=== PATIENT | female | born 1950 | race Caucasian/White ===

== ENCOUNTER 2017-02-09 06:54 | Day surgery (SDC) | payer MEDICARE ==
[~2017-02-09] VITALS: Ht 162.6 cm; Wt 77.1 kg
[~2017-02-09 06:54] MED LIST: ASPIRIN ADULT L81 M2 PO; BL IBUPROFEN200 MG PO; CALCIUM + D PO; EC-81 ASPIRIN81 MG PO; LIPITOR10 M1 PO; LOSARTAN POT100 MG PO; OMEPRAZOLE20 M2 PO; TYLENOL 500MG TAB PO
[2017-02-09 09:29] VITALS: BP 107/55
== END 2017-02-09 09:21 | disposition home or self-care (01) ==
LOC: ENDO 06:54 → ORM 10:15 → ENDO 10:15 → ORM 10:30
PROVIDERS: ATTEND Internal Medicine Gastroenterology
PROC: 0DB48ZX Excision of Esophagogastric Junction, Via Natural or Artificial Opening Endoscopic, Diagnostic (ICD-10-PCS; principal; 2017-02-09)
PROC: 0DB68ZX Excision of Stomach, Via Natural or Artificial Opening Endoscopic, Diagnostic (ICD-10-PCS; 2017-02-09)
DX: K21.9 Gastro-esophageal reflux disease without esophagitis (principal); K29.50 Unspecified chronic gastritis without bleeding; K57.30 Diverticulosis of large intestine without perforation or abscess without bleeding; K64.8 Other hemorrhoids; I10 Essential (primary) hypertension; K31.7 Polyp of stomach and duodenum; K44.9 Diaphragmatic hernia without obstruction or gangrene; Z86.010 Personal history of colon polyps

== ENCOUNTER 2017-03-06 01:17 | Emergency (ER) | payer MEDICARE ==
[~2017-03-06] VITALS: Ht 162.6 cm; Wt 78.6 kg
[2017-03-06 02:13] LABS: HEMATOCRIT 41.8 % (37.0-47.0); HEMOGLOBIN 14.5 g/dl (12.0-16.0); IMMATURE GRANULOCYTES 0.1 % (0.0-1.0); MEAN CELL VOLUME 85.1 fL CALC (80.0-100.0); MEAN CORPUSCULAR HGB 29.5 pG CALC (26.0-32.0); MEAN CORPUSCULAR HGB CONC 34.7 g/L CALC (32.0-36.0); NEUT# 7.11 thou/uL (2.00-7.15); RED BLOOD COUNT 4.91 mill/uL (4.20-5.60)
[2017-03-06 02:27] LABS: ALBUMIN 4.4 g/dL (3.2-5.0); ALKALINE PHOSPHATASE 109 u/l (38-126); ANION GAP 14 (6-22 (CALC)); BILIRUBIN, TOTAL 0.8 mg/dL (0.0-1.4); BUN 16 mg/dL (8-23); BUN/CREATININE RATIO 27 (12-20 (CALC)); CALCIUM 9.5 mg/dL (8.4-10.2); CARBON DIOXIDE 25 mmol/l (22-30); CHLORIDE 107 mmol/l (95-108); CREATININE 0.6 mg/dL (0.5-1.0); GFR > 60 ML/MIN (>=60 (CALC)); GFR FOR AFR.AMER. > 60 ML/MIN (>=60 (CALC)); GLUCOSE 128 mg/dL (82-115); POTASSIUM 3.8 mmol/l (3.5-5.1); SGOT/AST 39 u/l (9-36); SGPT/ALT 70 u/l (11-66); SODIUM 142 mmol/l (137-146); TOTAL PROTEIN 7.3 g/dL (6.3-8.2)
[2017-03-06 03:02] LABS: URINE BILIRUBIN - DIPSTICK NEGATIVE (NEGATIVE); URINE BLOOD DIPSTICK TRACE-INTACT (NEGATIVE); URINE CLARITY CLEAR; URINE COLOR YELLOW; URINE GLUCOSE - DIPSTICK NEGATIVE (NEGATIVE); URINE KETONE NEGATIVE (NEGATIVE); URINE LEUK ESTERASE NEGATIVE (NEGATIVE); URINE NITRITE - DIPSTICK NEGATIVE (Negative); URINE PH 5.5 (4.5-8.0); URINE PROTEIN - DIPSTICK NEGATIVE (NEG-TRACE); URINE SPECIFIC GRAVITY 1.025; URINE UROBILINOGEN - DIPSTICK 0.2 E.U./dL (0.2)
[2017-03-06] MEDS ORDERED: AMOXICILLIN/PO500 MG PO (03:11)
[2017-03-06 04:00] VITALS: BP 129/60
[2017-03-06] MEDS ORDERED: AUGMENTIN875TAB PO (13:56)
== END 2017-03-06 04:00 | disposition home or self-care (01) ==
LOC: ED 01:17
PROVIDERS: Emergency Medicine
DX: L03.116 Cellulitis of left lower limb (principal); L03.115 Cellulitis of right lower limb; R50.9 Fever, unspecified; I10 Essential (primary) hypertension

== ENCOUNTER 2023-02-19 07:46 | Day surgery (SDC) | payer MEDICARE ==
[~2023-02-19] VITALS: Ht 162.6 cm; Wt 70.8 kg
[~2023-02-19 07:46] MED LIST changes: +AMOXICILLIN/PO500 MG PO; +AUGMENTIN875TAB PO; +METOPROLOL TAR100 MG PO
[2023-02-19 10:09] VITALS: BP 139/81
== END 2023-02-19 10:40 | disposition home or self-care (01) ==
LOC: ENDO 07:46 → ORM 09:10 → ENDO 10:40 → ORM 12:00
PROVIDERS: ATTEND Internal Medicine Gastroenterology
PROC: 0DBN8ZX Excision of Sigmoid Colon, Via Natural or Artificial Opening Endoscopic, Diagnostic (ICD-10-PCS; principal; 2023-02-19)
PROC: 0DB48ZX Excision of Esophagogastric Junction, Via Natural or Artificial Opening Endoscopic, Diagnostic (ICD-10-PCS; 2023-02-19)
PROC: 0DB78ZX Excision of Stomach, Pylorus, Via Natural or Artificial Opening Endoscopic, Diagnostic (ICD-10-PCS; 2023-02-19)
PROC: 0DB68ZX Excision of Stomach, Via Natural or Artificial Opening Endoscopic, Diagnostic (ICD-10-PCS; 2023-02-19)
DX: Z12.11 Encounter for screening for malignant neoplasm of colon (principal); D12.5 Benign neoplasm of sigmoid colon; K57.30 Diverticulosis of large intestine without perforation or abscess without bleeding; K64.8 Other hemorrhoids; K44.9 Diaphragmatic hernia without obstruction or gangrene; K29.70 Gastritis, unspecified, without bleeding; K25.9 Gastric ulcer, unspecified as acute or chronic, without hemorrhage or perforation; K31.7 Polyp of stomach and duodenum; Z86.010 Personal history of colon polyps

== ENCOUNTER 2023-05-21 08:15 | Day surgery (SDC) | payer MEDICARE ==
[~2023-05-21] VITALS: Ht 162.6 cm; Wt 71.7 kg
[~2023-05-21 08:15] MED LIST changes: +ZYRTEC10 MG PO
[2023-05-21 09:49] VITALS: BP 111/58
== END 2023-05-21 10:00 | disposition home or self-care (01) ==
LOC: ORM 08:15
PROVIDERS: ATTEND Internal Medicine Gastroenterology
PROC: 0DB78ZX Excision of Stomach, Pylorus, Via Natural or Artificial Opening Endoscopic, Diagnostic (ICD-10-PCS; principal; 2023-05-21)
DX: K29.50 Unspecified chronic gastritis without bleeding (principal); K44.9 Diaphragmatic hernia without obstruction or gangrene; K31.9 Disease of stomach and duodenum, unspecified; Z87.11 Personal history of peptic ulcer disease; Z87.19 Personal history of other diseases of the digestive system